=== PATIENT | female | born 1965 | race Caucasian/White ===

== ENCOUNTER 2018-01-24 15:53 | Emergency (ER) | payer OTHER ==
[2018-01-24] MEDS: IBUPROFEN 600 MG TAB PO (17:51)
== END 2018-01-24 18:09 | disposition home or self-care (01) ==
LOC: E/R 15:53
DX: M79.661 Pain in right lower leg (principal); M25.571 Pain in right ankle and joints of right foot
CPT/HCPCS: 93926; 93971; 99285-25